=== PATIENT | female | born 1995 | race Caucasian/White ===

== ENCOUNTER 2022-03-15 22:50 | Emergency (ER) | payer OTHER, SELFPAY ==
--- NOTE | 2022-03-15 | ECG_ITS ---
Test Reason : chest pain Blood Pressure : / mmHG Vent. Rate : 107 BPM Atrial Rate : 107 BPM P-R Int : 144 ms QRS Dur : 074 ms QT Int : 320 ms P-R-T Axes : 031 019 -05 degrees QTc Int : 427 ms Sinus tachycardia Otherwise normal ECG No previous ECGs available Referred By: Generic ED Physician Electronically Signed By:REJI GUILLEN
[2022-03-15 23:02] VITALS: BP 125/84; PULSE 99; RESP 18; TEMP 36.6; O2SAT 100; BMI 41.5
[2022-03-15 23:25] LABS: COVID-19 Test Negative (Negative)
== END 2022-03-16 06:26 | disposition left against medical advice (07) ==
LOC: HO.ED 03-16 04:48
PROVIDERS: Emergency Provider Emergency Medicine
DX: R07.9 Chest pain, unspecified (principal); Z20.822 Contact with and (suspected) exposure to COVID-19; R05.9 Cough, unspecified
CPT/HCPCS: 87635; 93005; 99281; 99283

== ENCOUNTER 2023-06-19 12:52 | Emergency (ER) | payer OTHER, SELFPAY ==
--- NOTE | ~2023-06-19 | XR_ITS ---
EXAMINATION: XR CHEST CLINICAL INFORMATION: Cough and fever COMPARISON: None available. TECHNIQUE: 2 views of the chest were obtained. FINDINGS: No significant abnormality is noted involving the heart, lungs, mediastinum, bony thorax or soft tissues. XR/XR chest 2V IMPRESSION: Unremarkable chest examination.
[2023-06-19 13:01] VITALS: BP 120/80; PULSE 110; O2SAT 99
[2023-06-19 13:41] VITALS: BP 116/79; PULSE 107; RESP 18; TEMP 36.9; O2SAT 98; BMI 35.9
--- NOTE | 2023-06-19 13:41 | ED.NAVMDI ---
HPI - Nausea/Vomiting/Diarrhea General Chief complaint: Nausea/Vomiting/Diarrhea Stated complaint: NAUSEA,VOMITING,CHILLS X'S 2 DAYS PER EMS Time Seen by Provider: 06/19/23 15:08 Source: patient Mode of arrival: ambulatory Limitations: no limitations History of Present Illness HPI Narrative: 28yo female healthy here with multiple complaints x 1 week. Patients report her family member were sick with similar symptoms but they seem to be improving. She has had productive cough, fevers, chills, vomiting, diarrhea, chest discomfort for coughing, malaise. No abdominal pain, leg swelling/leg pain, SOB, skin rash, neck pain or stiffness. Associated nausea: Yes Related Data Previous Rx's Medication Instructions Recorded ondansetron 4 mg disintegrating 4 mg PO Q6H PRN nausea and 06/19/23 tablet vomiting #15 tabs Allergies Allergy/AdvReac Type Severity Reaction Status Date / Time No Known Allergies Allergy Verified 06/19/23 13:41 Review of Systems Review of Systems: Yes all other systems are reviewed and are negative Constitutional: Constitutional: Reports no additional constitutional complaints, Reports body ache(s), Denies chills, Reports fever(s), Reports headache(s), Reports malaise and Denies weakness Eyes: Eyes: Reports no additional eye complaints and Denies change in vision ENT: Reports system reviewed and no additional complaints, except as documented, Denies dizziness, Reports headache(s), Denies nasal congestion, Denies nasal discharge and Denies neck pain Cardiovascular: Cardiovascular: Reports no additional cardiovascular complaints, Denies chest pain, Denies leg edema and Denies dyspnea Respiratory: Respiratory: Reports no additional respiratory complaints, Reports cough and Denies dyspnea Gastrointestinal: Gastrointestinal: Reports no additional gastrointestinal complaints, Denies abdominal pain, Reports diarrhea, Reports nausea and Reports vomiting Genitourinary: Genitourinary: Reports no additional female genitourinary complaints and Denies urinary incontinence Musculoskeletal: Musculoskeletal: Reports no additional musculoskeletal complaints, Denies back pain, Denies arthralgias, Denies joint swelling, Denies neck pain, Denies numbness and Denies tingling Integumentary/Breasts: Skin/Breast: Reports system reviewed and no additional complaints, except as docu and Denies rash Neurologic: Reports system reviewed and no additional complaints, except as documented, Denies Abnormal speech present, Denies dizziness, Reports headache(s), Denies numbness, Denies tingling and Denies weakness [facility] Past Medical History Attestation statement: The following information was validated with the patient. Source: old records reviewed and nursing notes reviewed Social History Social History Advance Directives: No Advance Directives Information Provided: No Physical Exam Vital Signs: Vital Signs: Last Vital Signs Temp 98.1 F 06/19/23 15:53 Pulse 118 H 06/19/23 15:55 Resp 18 06/19/23 15:53 BP 109/70 06/19/23 15:55 Pulse Ox 100 06/19/23 15:53 O2 Del Method Room Air 06/19/23 15:53 BMI result Body Mass Index 35.9 Const: General: cooperative, healthy appearing, comfortable and no acute distress Orientation/consciousness: patient oriented x3 Limitations: no limitations HEENT: Head: Yes normal to inspection Ears: hearing grossly normal bilaterally and TM's normal bilaterally General nose exam: Normal external nose present Face and sinus: Yes normal facial exam Mouth: Normal oral and palatal mucosa present Throat: Yes posterior oropharynx normal, Yes tonsils normal and Yes uvula midline Eyes: General: appearance normal, both eyes and all related structures Pupils: Equal, round and reactive pupils present Neck: Neck: Yes normal visual inspection, Yes full ROM, Yes no lymphadenopathy and Yes no meningeal signs Chest: Chest palpation & inspection: normal inspection of the chest Resp: Effort & Inspection: normal respiratory effort Auscultation: clear to auscultation bilaterally Cardio: Rate: regular rate Rhythm: regular rhythm Peripheral pulses: Peripheral pulses 2+ throughout GI: Inspection: Yes normal to inspection Palpation (GI): Soft to palpation and nontender Auscultation: normal bowel sounds Back/Spine/Pelvis: Thoracic/Lumbar Spine: thoracic and lumbar spine normal to inspection Skin: General skin exam: no rashes or lesions noted Neuro: General: patient oriented x3, no meningeal signs, no focal motor deficits and normal sensation to monofilament Cranial nerves: Yes Equal, round and reactive pupils present Cognition (Neuro): normal cognition Speech: No Abnormal speech present Gait exam (Neuro): Normal gait present Motor exam (neuro): 5/5 motor strength present throughout Extrem: General: Yes normal to inspection, Yes no pedal edema and Yes no calf tenderness Course Course Course Narrative: RME: 28yo F w/no sig PMHx c/o subj fever, nausea, vomiting, sore throat, cough, chills, diarrhea and epigastric abdominal pain x1 week. +sick contacts. Abdomen soft non-tender, uvula midline no erythema. Labs, UA, viral testing ordered Full HPI, ROS and PE to be performed by primary ED provider. Reevaluation(s) Reevaluation #1: 1554-+orthos. will give 2L NS, antiemetic Reevaluation #2: 1730- Feeling improved. Tolerating p.o.. No additional vomiting episodes. Likely viral syndrome. Reviewed worrisome signs and symptoms of when to return to the emergency room. Comfortable plan for discharge home Medications Administered Discontinued Medications Generic Name Dose Route Start Last Admin Trade Name Freq PRN Reason Stop Dose Admin Sodium Chloride 1,000 mls @ 999 mls/hr 06/19/23 15:53 06/19/23 16:19 Ns IV 06/19/23 16:53 999 mls/hr .Q1H1M STA Administration Sodium Chloride 1,000 mls @ 999 mls/hr 06/19/23 15:54 06/19/23 16:20 Ns IV 06/19/23 16:54 999 mls/hr .Q1H1M STA Administration Ketorolac Tromethamine 15 mg 06/19/23 15:54 06/19/23 16:23 Ketorolac Tromethamine 15 Mg/Ml Vial IVPUSH 06/19/23 15:55 15 mg ONCE ONE Administration Ondansetron HCl 4 mg 06/19/23 15:40 06/19/23 15:44 Ondansetron Odt 4 Mg Tab.Rapdis TRANSLINGU 06/19/23 15:41 4 mg ONCE ONE Administration Medical Decision Making Medical Decision Making MDM Narrative: 28yo female healthy here with multiple complaints x 1 week. Patients report her family member were sick with similar symptoms but they seem to be improving. She has had productive cough, fevers, chills, vomiting, diarrhea, chest discomfort for coughing, malaise. No abdominal pain, leg swelling/leg pain, SOB, skin rash, neck pain or stiffness. Exam benign. VSS. LS CTA. Abdomen soft/nontender. Will send labs, UA, urine , viral testing, orthostatics Will give SL zofran Differential Diagnosis Differential Diagnoses: The differential diagnosis associated with the presentation includes viral syndrome Low concern for acute abdomen Admission/Observation Consideration of admission/observation: Escalation of care including admission/observation considered tolerating po, feeling improved, no need for admission for IVF Lab Data [facility] Lab Attestation statement: I reviewed the patient's lab results. 06/19/23 14:05 06/19/23 14:05 Labs: Lab Results 06/19/23 Range/Units 14:05 WBC 8.8 (4.8-10.8) X10*3/uL RBC 4.68 (4.20-5.50) X10*6/uL Hgb 14.0 (12.0-16.0) g/dl Hct 40.4 (37.0-47.0) % MCV 86.3 (80.0-98.0) fL MCH 29.9 (27.0-33.0) pg MCHC 34.7 (31.0-35.0) g/dl RDW 11.9 (11.0-16.0) % Plt Count 263 (160-400) X10*3/uL MPV 9.0 L (9.4-12.3) fL Immature Gran % (Auto) 0.2 (0.0-0.4) % Neut % (Auto) 87.9 H (45-73) % Lymph % (Auto) 8.5 L (20-40) % Morrison % (Auto) 3.2 (2-11) % Eos % (Auto) 0.1 (0-4) % Baso % (Auto) 0.1 (0-2) % Lymph # (Auto) 0.8 L (1.2-4.9) X10*3/uL Morrison # (Auto) 0.3 (0.1-1.2) X10*3/uL Eos # (Auto) 0.0 (0.0-0.4) X10*3/uL Baso # (Auto) 0.0 (0.0-0.2) X10*3/uL Abs Immat Gran (auto) 0.02 (0.00-0.03) X10*3/uL Absolute Neuts (auto) 7.7 (2.0-8.3) x10*3/uL Absolute Nucleated RBC 0.000 (0.0-0.012) X10*3/uL Nucleated RBC % (auto) 0.0 (0.0-0.2) /100WBC Sodium 137 (135-145) mmol/L Potassium 3.8 (3.3-5.1) mmol/L Chloride 103 (96-108) mmol/L Carbon Dioxide 26 (22-29) mmol/L Anion Gap 12 (12-20) BUN 10 (9-16) mg/dL Creatinine 0.86 (0.5-1.4) mg/dL Estim Creat Clear Calc 95.3 Estimated GFR > 60 Random Glucose 118 H (60-115) mg/dL Calcium 8.8 (8.4-10.2) mg/dL Magnesium 2.0 (1.6-2.6) mg/dL Total Bilirubin 0.5 (0.0-1.0) mg/dL Direct Bilirubin 0.2 (0.0-0.5) mg/dL AST 20 (5-31) U/L ALT 16 (0-31) U/L Alkaline Phosphatase 72 (39-117) U/L Total Protein 7.4 (6.5-8.0) g/dL Albumin 3.9 (3.5-5.0) g/dL Lipase 14 (8-78) U/L COVID-19 (JORGE) Negative (Negative) COVID-19 Clin Com See Note Influenza Type A (LETI) Negative (Negative) Influenza Type B (LETI) Negative (Negative) Influenza A & B Note See Note S. pyogenes GrpA LETI Negative (Negative) Independent Interpretation I performed an independent interpretation of an: Plain X-Ray Interpretation: I independently reviewed x-ray and agree the rad report Radiology Impression Discussion of test interpretation with radiology: I have reviewed the radiologist's reading. Radiologist Impression: [address] [address] XRay Report Signed Patient: Nay Pascal MR#: [id number] : 1995 Acct:[id number] Age/Sex: 28 / F ADM Date: 06/19/23 Loc: .ED Attending Dr: Ordering Physician: Florecita Segovia NP Date of Service: 06/19/23 Procedure(s): XR chest 2V Accession Number(s): [id number] cc: Physician,None ; Florecita Segovia CONVICT GUARD~ EXAMINATION: XR CHEST CLINICAL INFORMATION: Cough and fever COMPARISON: None available. TECHNIQUE: 2 views of the chest were obtained. FINDINGS: No significant abnormality is noted involving the heart, lungs, mediastinum, bony thorax or soft tissues. XR/XR chest 2V IMPRESSION: Unremarkable chest examination. Independent Historian Clinical information obtained from an independent historian. History obtained from or confirmed by: Spouse Prescription Management I considered prescription management with: Antiviral and Antibiotic Discharge Plan Discharge Clinical Impression: Acute viral syndrome Patient Disposition: Home, Self-Care Instructions: Viral Syndrome (ED) Additional Instructions: Testing for flu, covid and rsv are negative Blood work is reassuring Chest x-rays show no signs of infection Prescriptions: New ondansetron 4 mg tablet,disintegrating 4 mg PO Q6H PRN (Reason: nausea and vomiting) Qty: 15 0RF Referrals: Physician,None [Primary Care Provider] - 1 week Stand Alone Forms: Work/School Release
[2023-06-19 14:10] LABS: MANUAL DIFF FLAG NO
[2023-06-19 14:16] LABS: Basophils Percent Auto 0.1 % (0-2); Eosinophils Percent Auto 0.1 % (0-4); Hematocrit 40.4 % (37.0-47.0); Imm Gran Abs Auto 0.02 X10*3/uL (0.00-0.03); Imm Gran Pct Auto 0.2 % (0.0-0.4); Lymphocytes Absolute Auto 0.8 X10*3/uL (1.2-4.9); Lymphocytes Percent Auto 8.5 % (20-40); Mean Corpuscular HGB Conc 34.7 g/dl (31.0-35.0); Mean Corpuscular Hemoglobin 29.9 pg (27.0-33.0); Mean Corpuscular Volume 86.3 fL (80.0-98.0); Monocytes Absolute Auto 0.3 X10*3/uL (0.1-1.2); Monocytes Percent Auto 3.2 % (2-11); Neutrophils Absolute Auto 7.7 x10*3/uL (2.0-8.3); Neutrophils Percent Auto 87.9 % (45-73); Platelet Count 263 X10*3/uL (160-400); Red Blood Count 4.68 X10*6/uL (4.20-5.50); Red Cell Distribution Width 11.9 % (11.0-16.0); White Blood Count 8.8 X10*3/uL (4.8-10.8)
[2023-06-19 14:21] LABS: IDNOW Serial# 08D9AD1C
[2023-06-19 14:22] LABS: Strep A Nucleic Acid Negative (Negative)
[2023-06-19 14:27] LABS: Alanine Aminotransferase 16 U/L (0-31); Albumin Level 3.9 g/dL (3.5-5.0); Alkaline Phosphatase 72 U/L (39-117); Anion Gap 12 (12-20); Aspartate Amino Transferase 20 U/L (5-31); Bilirubin Direct 0.2 mg/dL (0.0-0.5); Bilirubin Total 0.5 mg/dL (0.0-1.0); Blood Urea Nitrogen 10 mg/dL (9-16); Calcium 8.8 mg/dL (8.4-10.2); Carbon Dioxide 26 mmol/L (22-29); Chloride 103 mmol/L (96-108); Creatinine Clr Calc Pharmacy 95.3; Estimated Glomerular Filt Rate > 60; Glucose Random 118 mg/dL (60-115); Lipase 14 U/L (8-78); Potassium 3.8 mmol/L (3.3-5.1); Sodium 137 mmol/L (135-145); Total Protein 7.4 g/dL (6.5-8.0)
[2023-06-19 14:29] LABS: COVID-19 Test Negative (Negative); IDNOW Serial# BCCEAD1C
[2023-06-19 15:13] LABS: IDNOW Serial# 9DB6401D; Influenza A Negative (Negative); Influenza B2 Negative (Negative)
[2023-06-19] MEDS: Ondansetron ODT 4 MG TAB.RAPDIS TRANSLINGU (15:44)
[2023-06-19 15:53] VITALS: BP 114/76; PULSE 96; RESP 18; TEMP 36.7; O2SAT 100
[2023-06-19 15:54] VITALS: BP 116/80; PULSE 109
[2023-06-19 15:55] VITALS: BP 109/70; PULSE 118
[2023-06-19] MEDS: 0.9 % Sodium Chloride 1,000 ML 999 ML IV ×2 (16:19→16:20)
[2023-06-19] MEDS: Ketorolac Tromethamine 15 MG/ML VIAL IVPUSH (16:23)
== END 2023-06-19 19:19 | disposition home or self-care (01) ==
PROVIDERS: Physician Assistant; Emergency Provider Emergency Medicine Emergency Medical Services
DX: B34.9 Viral infection, unspecified (principal); R11.2 Nausea with vomiting, unspecified; R50.9 Fever, unspecified; R05.9 Cough, unspecified; Z11.52 Encounter for screening for COVID-19; Z20.822 Contact with and (suspected) exposure to COVID-19; Z79.899 Other long term (current) drug therapy
CPT/HCPCS: 71046; 80048; 80076; 83690; 83735; 85025; 87502; 87635; 87651; 96374; 99283; 99284; J1885

== ENCOUNTER 2024-09-15 14:57 | Emergency (ER) | payer OTHER, SELFPAY ==
[2024-09-15 15:02] VITALS: BP 123/85; BP 135/91; PULSE 85; PULSE 88; RESP 16; TEMP 36.6; O2SAT 100; O2SAT 98; BMI 40.2
[2024-09-15 15:09] VITALS: BP 123/85; PULSE 85; RESP 16; TEMP 36.6; O2SAT 98
--- NOTE | 2024-09-15 15:33 | ECG_ITS ---
Test Reason : NEAR SYNCOPE Blood Pressure : */* mmHG Vent. Rate : 85 BPM Atrial Rate : 85 BPM P-R Int : 140 ms QRS Dur : 74 ms QT Int : 356 ms P-R-T Axes : 15 22 3 degrees QTcB Int : 423 ms Normal sinus rhythm Septal infarct , age undetermined Abnormal ECG When compared with ECG of 15-Mar-2022 23:06, Septal infarct is now Present Referred By: Caryn Isabel Electronically Signed By: Britton Skaggs
--- NOTE | 2024-09-15 15:45 | ED.SYNCOPE ---
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 She does suffer from spells since then per mom where she feels like she is going to pass out. 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 She denies CP/SOB, recent illness, n/v/d, headaches. She just feels a little foggy - no loss of time and no confusion she remembers the whole event. She is able to communicate the events of what happened. She states she had a normal day yesterday. 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) -: minutes(s) Prodromal symptoms: lightheaded Witnessed: Yes - by Bystander Context: at rest Injuries sustained associated with event: none Current symptoms: back to baseline History: seizure disorder and previous syncopal episode Treatments prior to arrival: none Related Data Previous Rx's ?Medication ?Instructions ?Recorded ondansetron 4 mg disintegrating 4 mg PO Q6H PRN nausea and 06/19/23 tablet vomiting #15 tabs Allergies Allergy/AdvReac Type Severity Reaction Status Date / Time No Known Allergies Allergy Verified 09/15/24 15:06 Review of Systems Review of Systems: Constitutional : No Fever, No Chills, No Fatigue ENT/Mouth : No sore throat, No Rhinorrhea Eyes: No Eye Pain, No Swelling, No Redness Cardiovascular : No Chest Pain, No SOB, No Dyspnea on Exertion Respiratory : No Cough, No Sputum Gastrointestinal : No Nausea, No Vomiting, No Diarrhea, No abdominal Pain Genitourinary : No Dysuria, No Urinary Frequency, No Hematuria, Musculoskeletal : No joint pain, No Myalgias, No Joint Swelling Skin : No Skin Lesions, No rash Neuro : pos Weakness, No Numbness, pos Dizziness, no Headache Psych : No Anxiety/Panic, No Depression All other systems reviewed and are negative [facility] Past Medical History Attestation statement: The following information was validated with the patient. Source: old records reviewed Medical History Seizure Brain tumor (benign) Social History Social History (Updated 09/15/24 @ 16:08 by Caryn Isabel DO) Patient Tobacco Use Status: Never used Tobacco Physical Exam Vital Signs: Vital Signs: Last Vital Signs Temp 97.9 F 09/15/24 15:09 Pulse 85 09/15/24 15:09 Resp 16 09/15/24 15:09 BP 123/85 09/15/24 15:09 Pulse Ox 98 09/15/24 15:09 O2 Del Method Room Air 09/15/24 15:09 BMI result Body Mass Index 40.2 Appearance: Alert. Oriented X3. No acute distress. Eyes: Pupils equal, round and reactive to light. ENT: Pharynx normal. Neck: Normal inspection. Neck supple. CVS: Normal heart rate and rhythm. Pulses normal. Respiratory: No respiratory distress. Breath sounds normal. Abdomen: Soft and nontender. Skin: Skin warm and dry. Normal skin color. Normal skin turgor. Extremities: No lower extremity edema. No calf ttp Neuro: Oriented X 3. No motor deficit. No sensory deficit. CN2-12 intact NIH Stroke Scale Internal: Initial- Upon Arrival Level of Consciousness: Alert Level of Consciousness Questions: Answers both questions correctly Level of Consciousness Commands: Performs both tasks correctly Best Gaze: Normal Visual: No visual loss Facial Palsy: Normal Motor Arm (Right): No drift Motor Arm (Left): No drift Motor Leg (Right): No drift Motor Leg (Left): No drift Limb Ataxia: Absent Sensory: Normal Best Language: No aphasia Dysarthia: Normal Extinction and Inattention: No abnormality Score: 0 Medical Decision Making Medical Decision Making MDM Narrative: 29 yo female with PMH of benign brain tumor and seizure hx but no further seizures once mass removed - since then has recurrent episodes sometimes of feeling weak and not herself no symptoms of CP/SOB and not on OCPs to suggest VTE - she is PERC negative, NIH 0 no deficits. She has no postictal state no symptoms of seizure, ortho VS negative at clinic at this time will obtain labs, quant, ECG. Could have been pre-syncope Differential Diagnosis Differential Diagnoses: The differential diagnosis associated with the presentation includes anemia, dehydration, pre-syncope Admission/Observation Consideration of admission/observation: Escalation of care including admission/observation considered VS stable, not toxic stable for DC Lab Data MDM Lab Attestation statement: I reviewed the patient's lab results. Independent Interpretation I performed an independent interpretation of an: EKG Interpretation: Rate: 85 Rhythm: NSR [place]: normal Normal P waves. Normal YANET. Normal QRS complex. ST T wave : normal no JOSE C, inverted t waves III and V1 qTC: 423 prior studies: no acute ischemia The study has been interpreted contemporaneously by me. . Independent Historian Clinical information obtained from an independent historian. History obtained from or confirmed by: Parent External Record Review External record reviewed: Outpatient record Discharge Plan Discharge Clinical Impression: Near syncope Patient Disposition: Home, Self-Care Instructions: Near Syncope (ED) Additional Instructions: labs reassuring hemoglobin normal no drop in blood pressure when standing EKG reassuring at this time would rest and stay hydrated, stay with responsible adult in the next 24 hours please call and follow up with your neurologist return for any worsening symptoms or concerns. Prescriptions: No Action ondansetron 4 mg tablet,disintegrating 4 mg PO Q6H PRN (Reason: nausea and vomiting) Qty: 15 0RF Stand Alone Forms: Work/School Release Print Language: Maldivian
[2024-09-15 16:07] LABS: MANUAL DIFF FLAG NO
[2024-09-15 16:09] LABS: Basophils Percent Auto 0.3 % (0-2); Eosinophils Absolute Auto 0.1 X10*3/uL (0.0-0.4); Eosinophils Percent Auto 0.7 % (0-4); Hemoglobin 13.4 g/dl (12.0-16.0); Imm Gran Abs Auto 0.03 X10*3/uL (0.00-0.03); Imm Gran Pct Auto 0.3 % (0.0-0.4); Lymphocytes Percent Auto 29.8 % (20-40); Mean Corpuscular HGB Conc 35.3 g/dl (31.0-35.0); Mean Corpuscular Hemoglobin 30.4 pg (27.0-33.0); Mean Corpuscular Volume 86.2 fL (80.0-98.0); Mean Platelet Volume 8.6 fL (9.4-12.3); Monocytes Absolute Auto 0.6 X10*3/uL (0.1-1.2); Monocytes Percent Auto 5.9 % (2-11); Neutrophils Absolute Auto 6.4 x10*3/uL (2.0-8.3); Platelet Count 376 X10*3/uL (160-400); Red Blood Count 4.41 X10*6/uL (4.20-5.50); Red Cell Distribution Width 12.4 % (11.0-16.0); White Blood Count 10.2 X10*3/uL (4.8-10.8)
[2024-09-15 16:28] LABS: Anion Gap 12 (12-20); Blood Urea Nitrogen 11 mg/dL (9-16); Calcium 9.1 mg/dL (8.4-10.2); Carbon Dioxide 26 mmol/L (22-29); Chloride 106 mmol/L (96-108); Creatinine Clr Calc Pharmacy 127.3; Estimated Glomerular Filt Rate > 60; Glucose Random 85 mg/dL (60-115); Magnesium 1.8 mg/dL (1.6-2.6); Potassium 3.7 mmol/L (3.3-5.1); Sodium 140 mmol/L (135-145)
[2024-09-15 16:41] LABS: Troponin-I High Sensitivity < 2.7 ng/L (<3.5-17.0)
[2024-09-15 16:42] LABS: HCG Quantitative < 2 mIU/mL
[2024-09-15 16:59] VITALS: BP 128/83; PULSE 99; RESP 18; TEMP 36.7; O2SAT 99
== END 2024-09-15 17:09 | disposition home or self-care (01) ==
PROVIDERS: Emergency Provider Emergency Medicine
DX: R55 Syncope and collapse (principal); I10 Essential (primary) hypertension; R94.31 Abnormal electrocardiogram [ECG] [EKG]; Z79.899 Other long term (current) drug therapy
CPT/HCPCS: 36415; 80048; 83735; 84484; 84702; 85025; 93005; 99283

== ENCOUNTER → 2024-09-15 15:33 | Outpatient (BNV) | payer OTHER, SELFPAY | PROVIDERS: Emergency Provider Emergency Medicine; Visit Provider Internal Medicine Cardiovascular Disease | DX: R94.31 Abnormal electrocardiogram [ECG] [EKG] (principal); R55 Syncope and collapse | CPT/HCPCS: 93010 ==

== ENCOUNTER 2024-11-01 13:23 | Outpatient (AMB) | payer OTHER, SELFPAY ==
--- NOTE | 2024-11-01 13:28 | A.OFFVIS_ITS ---
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 She is a 29 year female was diagnose with SVT in 2019 after the of her 2nd daughter. She was seen by electrophysiology at that time and was recommended ablation although she deferred at that point time and was very scared to undergo any procedures. Type of SVT is unknown. Do not have any EKG documentation of SVTs at [facility]. Patient subsequently was doing well and is now having increased symptoms of palpitations. She describes as palpitation rapid heart rate associated with some shortness of breath dizziness. She is not sure if these are related to anxiety. She did present to urgent care with the s ymptoms of palpitation and was noted to have very rapid heart rate and referred to the emergency room. She said when she came to the emergency room she had EKG but did not show any significant arrhythmias at that point time and was then discharged home without any medications. Since then she has had couple of episodes of similar symptoms. Symptoms have no triggers. She denies any recent increase in stress. She denies any lightheadedness, syncope. No exertional chest pain or shortness of breath. She drinks caffeine every day but not excessively. Denies any significant alcohol use or any other [id number] medication other drug use. [facility] Medical History Seizure Brain tumor (benign) Surgical History Hx of brain surgery Family History Father No problems noted. Mother HTN (hypertension) Social History Patient Tobacco Use Status: Never used Tobacco Review of Systems Const Denies chills, Denies daytime sleepiness, Denies fatigue, Denies fever(s), Denies frequent falls, Denies poor appetite, Denies snoring, Denies stops breathing during sleep, Denies weakness, Denies weight gain and Denies weight loss Eyes Denies loss of vision ENT Denies dizziness and Denies hearing loss Card Denies chest pain, Denies claudication, Denies leg edema, Denies lightheadedness, Denies palpitations, Denies dyspnea, Denies dyspnea on exertion and Denies orthopnea Resp Denies cough, Denies excessive phlegm production, Denies dyspnea, Denies dyspnea on exertion, Denies snoring and Denies wheezing GI Denies abdominal pain, Denies hematochezia, Denies change in bowel habits, Denies nausea and Denies vomiting Denies urinary frequency and Denies dysuria Musc Denies arthralgias, Denies muscle weakness, Denies numbness and Denies other (frequent falls) Skin/Breast Denies nail changes and Denies rash Neuro Denies Abnormal speech present, Denies dizziness, Denies frequent falls, Denies loss of vision, Denies memory loss, Denies numbness and Denies weakness Psych Denies depression and Denies memory loss Endo Denies fatigue and Denies palpitations Jose Angel/Lymph Reports easy bruising and Reports other (anemia) Aller/Immun Denies wheezing Physical Exam Vital Signs: Last Vital Signs Pulse 90 11/01/24 13:29 BP 124/76 11/01/24 13:29 BMI result Body Mass Index 41.2 Const General: cooperative, comfortable, no acute distress, alert, awake, Physically active and well groomed Nutritional Appearance: obese Orientation/consciousness: patient oriented x3 Limitations: no limitations HEENT Head: Yes normocephalic and Yes atraumatic Neck Neck: Yes trachea midline, Yes supple and Yes no JVD Resp Effort & Inspection: normal respiratory effort Auscultation: clear to auscultation bilaterally Cardio Jugular venous distension: no JVD Palpation: normal PMI Rate: regular rate Rhythm: regular rhythm Heart sounds: S1 normal heart sound present, S2 normal heart sound present, no click, no gallops, no murmurs and no rubs GI Auscultation: normal bowel sounds Skin General skin exam: no rashes or lesions noted Neuro General: patient oriented x3 and no focal motor deficits Speech: No Abnormal speech present Extrem General: Yes no clubbing, cyanosis or edema Psych Affect: Anxious affect present Assessment & Plan Assessment & Plan (1) Palpitations: Code(s): R00.2 - Palpitations Category: Medical Plan: Patient with symptoms of palpitation with prior history of SVT although no clear documented EKGs available for my review. At that time she was seen by electrophysiology and offered ablation although she had deferred. She was not having recurrent symptoms of palpitation with prolonged palpitations. This could again suggest presence of SVT. Would like to document diagnostic testing to suggest that she was SVT. I would suggest a 30 day event monitor to further assess for her symptoms. If she has recurrent SVT we discussed various treatment options including ablation and dual medical therapy. Meanwhile we discussed vagal maneuvers to try to suppress her symptoms. I have advised her to avoid stimulants. Stress mitigation strategies were discussed. No pharmacotherapy he has been off it. Will also suggest echocardiogram to evaluate for cardiac structure and function. Follow up in the clinic in 2 months, sooner p.r.n.. Thank you for allowing me to partake in her care Orders: Orders ECG 30 day event monitor Today R00.2 - Palpitations CA echo transthoracic complete Today R00.2 - Palpitations Medications: Discontinued ondansetron Discontinued Reason: Patient Completed Course 4 mg PO Q6H PRN 15 tabs 0RF nausea and vomiting Coding Level of Care Code New Pt Level 4 (70941) Complex EM visit Add On G2211 Diagnoses Palpitations R00.2
[2024-11-01 13:29] VITALS: BP 124/76; PULSE 90; BMI 41.2
--- OUTSIDE RECORDS SUMMARY | 2024-11-01 14:52 | XMS_ITS | Clinical Summary ---
Author Organization [facility] Address [address] [place] [address] Care Team Providers Care Marketing Systems Analyst Name Role Phone Lj Marmolejo MD Primary Care Provider [phone] Surgical History Surgery Date Site/Laterality Comments OTHER SURGICAL HISTORY 2010 PROCEDURE: ---- OTHER ----; COMMENT: left sided cavernous malformation resection - brain Medical History Medical History Date Comments Brain tumor (benign) (CMS/HC C V24, CMS/HCC V28) DX:Brain tumor (benign) (HCC ) Insomnia 04/18/2015 DX:Insomnia Headache 08/08/2014 DX:Headache Seizure disorder (CMS/HCC V2 4, CMS/HCC V28) 2008 DX:Seizure disorder (HCC); C OMMENT: 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 Dietary lactose intolerance 04/18/2015 DX:D ietary lactose intolerance Family History Relation Name Status Comments Father Alive healthy Mother Alive cervical cancer Social History Tobacco Use Types Packs/Day Years Used Date Smoking Tobacco: Never Smokeless Tobacco: Never Alcohol Use Standard Drinks/Week Comments No 0 (1 standard drink = 0.6 oz pur e alcohol) Comments Unknown Sex and Gender Information Value Date Recorded Sex Assigned at Not on file Legal Sex Female 10:52 PM EST Gender Identity Not on file Sexual Orientation Not on file Obstetrics History Plan of Treatment Health Maintenance Due Date Last Done Comments Hepatitis B Vaccines (1 of 3 - 19+ 3-dose series) 2012 Cervical Cancer Screening: P ap Smear 10/22/2021 10/22/2018 Depression Screening 06/02/2022 HIV Screening 06/02/2022 Hepatitis C Screening 06/02/2022 Social Influencers of Health Screening 06/02/2022 COVID-19 Vaccine (1 - 2023-2 5 season) 2024 Influenza Vaccine (Season Ended) 2025 DTaP,Tdap,and Td Vaccines (2 - Td or Tdap) 12/25/2026 12/25/2016 HIB Vaccines Aged Out No longer eligi ble based on patient's age to complete this topic HPV Vaccines Aged Out No longer eligi ble based on patient's age to complete this topic Hepatitis A Vaccines Aged Out No long er eligible based on patient's age to complete this topic IPV Vaccines Aged Out No longer eligi ble based on patient's age to complete this topic MMR Vaccines Aged Out No longer eligi ble based on patient's age to complete this topic Meningococcal ACWY Vaccine Aged Out N o longer eligible based on patient's age to complete this topic Meningococcal B Vaccine Aged Out No l onger eligible based on patient's age to complete this topic Pneumococcal Vaccine: Pediat rics (0 to 5 Years) and At-Risk Patients (6 to 64 Years) Aged Out No longer eligi ble based on patient's age to complete this topic RSV Immunization Patients Un sonia 20 months Aged Out No longer eligible b ased on patient's age to complete this topic Varicella Vaccines Aged Out No longer eligible based on patient's age to complete this topic Procedures Procedure Name Priority Date/Time Associated Diagnosis Comments PAP SMEAR Routine 10/22/2018 from Last 3 Months or Most Recently Relevant to Health Maintenance Results * Pap smear (10/22/2018) 10/22/2018 Narrative HISTORICAL TESTING LAB RESULTING AGENCY - 10/28/2018 2:05 PM EDT [id number] THINPREP PAP, IMAGED: NEGATIVE FOR SQUAMOUS INTRAEPITHELIAL LESION AND MALIGNANCY . WALE KENT(ASCP) (CASE ELECTRONICALLY SIGNED 10 28 2018) ADEQUACY: SATISFACTORY ENDOCERVICAL/TRANSFORMATION ZONE COMPONENT PRESENT. SOURCE: THINPREP PAP HPV IF ASCUS, CERVICAL, IMAGED CLINICAL INFORMATION: HPV IF DIAGNOSIS OF ASCUS. , PAP HX POS LPS 07/10/2016 ASCUS, NEG HPV, LMP 06/13/2018 [Z12.4, Z34.80] Paula [facility] CYTOLOGY ORDERABLES Final Result HISTORICAL TESTING LAB RESULTING AGENCY from Last 3 Months or Most Recently Relevant to Health Maintenance Care Teams Marketing Systems Analyst Relationship Specialty Start Date End Date Lj Marmolejo MD [address] [place] [address] PCP - General Internal Medicine 03/03/14
== END 2024-11-01 14:04 | disposition home or self-care (01) ==
LOC: HO.HCS 13:23
PROVIDERS: Visit Provider Internal Medicine Cardiovascular Disease
DX: R00.2 Palpitations (principal)
CPT/HCPCS: 99204; G2211

== ENCOUNTER → 2024-11-01 13:23 | Outpatient (BNVA) | payer OTHER, SELFPAY | PROVIDERS: Visit Provider Internal Medicine Cardiovascular Disease | DX: R00.2 Palpitations (principal) | CPT/HCPCS: 99202 ==

== ENCOUNTER → 2024-12-06 09:40 | Outpatient (REF) | payer OTHER, SELFPAY ==
--- NOTE | 2024-12-06 09:51 | CA_ITS ---
Transthoracic Echocardiogram Patient (Last, First, Middle): Nay Pascal L Gender: Female Date of : 1995 Age: 29 Procedure Date: 12/06/2024 Procedure Type: Transthoracic Echocardiogram Location: OP Height: 154.94 cm Weight: 98.88 kg BSA: 1.96 m2 Heart Rate: bpm BP: 124 / 76 mmHg [employer]: [employer] Referring MD: Paul Garcia MD Cpc: Paul Garcia MD Symptoms: R00.2 - Palpitations Study Quality: Fair ECG Rhythm: Sinus Conclusions: - Essentially normal study Findings Left Ventricle Normal left ventricular size, thickness, and systolic function. The visually estimated ejection fraction is between 55-60%. Spectral Doppler is indicative of a normal filling pattern. Right Ventricle Normal right ventricular cavity size and systolic function. Atria Both atria are normal in size. Interatrial shunt cannot be excluded. Aortic Valve Normal aortic valve structure and function. There is no aortic valve stenosis. There is no aortic valve regurgitation. Mitral Valve There is mild anterior and posterior mitral leaflet thickening. There is trace mitral valve regurgitation. There is no mitral valve stenosis. Pulmonic Valve The pulmonic valve was not well visualized. Tricuspid Valve Likely normal tricuspid valve structure and function. There is trace tricuspid valve regurgitation. The right ventricular systolic pressure is normal. The right ventricular systolic pressure is 25 mmHg. Normal right atrial pressure. There is no evidence of pulmonary hypertension. Great Vessels All visible segments of the aorta are normal in size. The pulmonary artery was not well visualized. Venous The inferior vena cava is normal in size and collapses greater than 50% with inspiration. Pericardium/Pleural There is no evidence of pericardial effusion. Prior Study Comparison No prior study available for comparison. Measurements 2D Linear Measurements IVSd: 0.99 0.6-0.9/0.6-1.0 cm LVIDd: 4.35 3.9-5.3/4.2-5.9 cm LVIDd Index: 2.22 2.4-3.2/2.2-3.1 cm/m2 LVIDs: 3.16 2.0-3.6 cm LVPWd: 0.83 0.7-1.1 cm LA Diam: 2.60 2.7-3.8/3.0-4.0 cm LAIDs Index: 1.33 1.5-2.3 cm/m2 LV Mass: 158.44 67-162/88-224 g LV Mass Index: 80.84 43-95/49-115 g/m2 LVOT Diam: 2.00 3.0+(-)1.3 cm 2D Systolic Function EF 4C: 60.80 >55% EF 2C: 53.90 >55% EF BiP: 56.40 >55% Mitral Valve MV Pk E: 1.04 MV PK A: 0.55 MV Decel Time: 263.00 E/A: 1.90 E'Lateral: 12.70 E'Medial: 7.94 E/E' Med: 13.10 E/E' Lat: 8.20 PHT: 77.00 MVA PHT: 2.86 Decel [place]: 3.95 Aortic Valve AoV Pk Mars: 1.42 AoV Mn Mars: 0.95 AoV VTI: 0.34 AoV Pk Grad: 8.00 Aov Mn Grad: 4.00 MOSES Cont.VTI: 2.06 LVOT LVOT Pk Mars: 0.93 LVOT Mn Mars: 0.66 LVOT VTI: 0.23 LVOT Pk Grad: 3.00 LVOT Mn Grad: 2.00 LVOT Diam: 2.00 LVOT Area: 3.14 Diastolic Function MV Pk E: 1.04 MV Pk A: 0.55 E/A: 1.90 E'Medial: 7.94 E/E' Med: 13.10 E' Laterial: 12.70 E/E' Lat: 8.20 Right Ventricle TAPSE (mm): 24.80 TVS' Mars: 12.70 Tricuspid Valve TR Pk Mars: 2.33 TR Pk Grad: 22.00 RA Press: 3.00 RVSP: 25.00 Great Vessels Aorta Sinus of Valsalva: 2.78 2.0-3.[address] [place]: 2.44 1.7-3.4 cm Ao Asc: 2.50 2.1-3.4 cm Ao Arch: 2.40 Updated in Other Vendor System with Status of Final Paul Garcia MD electronically signed on 12/06/2024 11:55:01 AM with status of Final
--- OUTSIDE RECORDS SUMMARY | 2024-12-06 10:21 | XMS_ITS | Clinical Summary ---
Author Organization [facility] Address [address] [place] [address] Care Team Providers Care Dental Technician Instructor Name Role Phone Lj Marmolejo MD Primary Care Provider [phone] Surgical History Surgery Date Site/Laterality Comments OTHER [...] RESULTING AGENCY - 10/28/2018 2:05 PM EDT [id number] THINPREP PAP, IMAGED: NEGATIVE FOR SQUAMOUS INTRAEPITHELIAL [...] Recently Relevant to Health Maintenance Care Teams Dental Technician Instructor Relationship Specialty Start Date End Date Lj Maromlejo MD [address] [place] [address] PCP - General Internal Medicine 03/03/14
== END ==
LOC: HO.CARD 09:40
PROVIDERS: Visit Provider Internal Medicine Cardiovascular Disease
DX: R00.2 Palpitations (principal)
CPT/HCPCS: 93270; 93306

== ENCOUNTER → 2024-12-06 09:51 | Outpatient (BNV) | payer OTHER, SELFPAY | PROVIDERS: Visit Provider Internal Medicine Cardiovascular Disease | DX: R00.2 Palpitations (principal) | CPT/HCPCS: 93306 ==